=== PATIENT | female | born 1960 | race Hispanic/Latino ===

== ENCOUNTER 2018-12-15 12:12 | Emergency (ER) | payer OTHER ==
[~2018-12-15] VITALS: Ht 165.1 cm; Wt 88.9 kg
[2018-12-15] MEDS ORDERED: NAPR-885 (12:19)
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
[2018-12-15 13:53] VITALS: BP 153/82
[2018-12-15] MEDS ORDERED: METH750T2 PO (14:17)
[2018-12-15] MEDS ORDERED: IBUP-1022 PO (14:17)
== END 2018-12-15 14:25 | disposition home or self-care (01) ==
LOC: M ED 12:12
DX: S13.9XXA Sprain of joints and ligaments of unspecified parts of neck, initial encounter (principal); V43.52XA Car driver injured in collision with other type car in traffic accident, initial encounter; Y92.9 Unspecified place or not applicable; Y93.9 Activity, unspecified; Y99.9 Unspecified external cause status

== ENCOUNTER → 2019-02-21 | Outpatient (REF) | payer OTHER ==
[~2019-02-21] MED LIST: IBUP-1022 PO; METH750T2 PO; NAPR-885
[2019-02-24 00:07] LABS: ANTINUCLEAR ANTIBODIES DIRECT Negative (Negative); CYCLIC CITRULLINATED PEPTIDE 8 units (0-19)
== END ==
LOC: M LAB REF 12:33
PROVIDERS: ATTEND Internal Medicine
DX: M25.50 Pain in unspecified joint (principal)

== ENCOUNTER → 2019-09-20 | Outpatient (REF) | payer OTHER | LOC: M LAB REF 16:03 | PROVIDERS: ATTEND Internal Medicine | DX: G60.9 Hereditary and idiopathic neuropathy, unspecified (principal) ==

== ENCOUNTER → 2020-05-07 | Outpatient (CLI) | payer OTHER ==
[~2020-05-07] MED LIST changes: +METH-1165 PO; -METH750T2 PO
--- NOTE | 2020-05-08 02:49 | REP ---
INDICATION: RESPIRATORY TB COMPARISON: 05/29/2007 TECHNIQUE: PA and lateral. FINDINGS: The mediastinum and cardiac silhouette are normal. The lung de la cruz are clear and without acute consolidation, effusion, or pneumothorax. The skeletal structures are intact and normal. IMPRESSION: No acute cardiopulmonary process. <Electronically signed by Jj Garcia > 05/08/20 [id number]
== END ==
LOC: M WUC 11:02
PROVIDERS: ATTEND Physician Assistant
DX: Z11.1 Encounter for screening for respiratory tuberculosis (principal)

== ENCOUNTER → 2021-06-16 | Outpatient (CLI) | payer OTHER | LOC: M RAD 15:51 | PROVIDERS: ATTEND Internal Medicine | DX: R52 Pain, unspecified (principal); M51.36 Other intervertebral disc degeneration, lumbar region; M51.37 Other intervertebral disc degeneration, lumbosacral region; M16.12 Unilateral primary osteoarthritis, left hip ==

== ENCOUNTER 2022-12-23 16:25 | Emergency (ER) | payer OTHER ==
[~2022-12-23] VITALS: Ht 165.1 cm; Wt 93.7 kg
[2022-12-23 16:26] VITALS: TEMP 97.9
[2022-12-23] MEDS ORDERED: LOSA25TA13 (17:29)
[2022-12-23] MEDS ORDERED: MELO15TA28 (17:29)
[2022-12-23 17:32] LABS: BASO % 0.3 % (0.0-1.0); EOS # 0.2 10^3/uL (0.0-0.5); EOS % 2.3 % (0.0-3.0); HEMATOCRIT 36.9 % (36.0-47.0); HEMOGLOBIN 12.4 g/dl (12.0-15.5); LYMPH # 2.7 10^3/uL (1.5-5.0); LYMPH % 29.9 % (24.0-44.0); MEAN CORPUSCULAR HEMOGLOBIN 30.2 pg (27.0-33.0); MEAN CORPUSCULAR HGB CONC 33.6 g/dl (32.0-36.5); MONO # 0.8 10^3/uL (0.0-0.8); MONO % 8.5 % (2.0-8.0); NEUTROPHILS # 5.2 10^3/uL (1.5-8.5); NEUTROPHILS % 58.8 % (36.0-66.0); PLATELET COUNT, AUTOMATED 308 10^3/uL (150-450); WHITE BLOOD COUNT 8.9 10^3/uL (4.0-10.0)
[2022-12-23 17:47] LABS: LIPASE 35 U/L (12-53)
[2022-12-23 17:49] LABS: ALBUMIN 3.8 G/DL (3.2-5.2); ALKALINE PHOSPHATASE 80 U/L (46-116); ALT/SGPT 30 U/L (7.0-40); AST/SGOT 22 U/L (<34); BILIRUBIN,DIRECT < 0.1 MG/DL (<0.4); BILIRUBIN,TOTAL 0.3 MG/DL (0.3-1.2); BLOOD UREA NITROGEN 15 MG/DL (9-23); CALCIUM LEVEL 8.9 MG/DL (8.3-10.6); CARBON DIOXIDE LEVEL 26 MMOL/L (20-31); CHLORIDE LEVEL 106 MMOL/L (98-107); CK-MB VALUE MASS 1.4 NG/ML (<3.6); CPK CREATINE PHOSPHOKINASE 164 U/L (34-145); GLOMERULAR FILTRATION RATE > 60.0 (>45); GLUCOSE, FASTING 88 MG/DL (74-106); MB/CK RELATIVE INDEX 0.85 (< OR =4); POTASSIUM SERUM 3.7 MMOL/L (3.5-5.1); SODIUM LEVEL 138 MMOL/L (136-145)
[2022-12-23] MEDS ORDERED: MAALOX 30 ML SUSP *UDC PO ONE (20:15)
[2022-12-23] MEDS ORDERED: SUCRALFATE 1 GM TAB PO ONE (20:15)
[2022-12-23 21:25] LABS: INR 1.11
[2022-12-23 21:30] VITALS: BP 111/66
[2022-12-23 21:38] LABS: CK-MB VALUE MASS 1.5 NG/ML (<3.6)
[2022-12-23 21:39] LABS: CPK CREATINE PHOSPHOKINASE 158 U/L (34-145); MB/CK RELATIVE INDEX 0.94 (< OR =4)
[2022-12-23 21:40] VITALS: O2SAT 94
[2022-12-23] MEDS ORDERED: SUCR1SS PO (21:48)
[2022-12-23] MEDS ORDERED: PROT1TAB2 PO (21:48)
== END 2022-12-23 22:00 | disposition home or self-care (01) ==
LOC: M ED 16:25
DX: R07.9 Chest pain, unspecified (principal); I10 Essential (primary) hypertension; K57.92 Diverticulitis of intestine, part unspecified, without perforation or abscess without bleeding; Z91.048 Other nonmedicinal substance allergy status; Z79.811 Long term (current) use of aromatase inhibitors; Z79.899 Other long term (current) drug therapy

== ENCOUNTER → 2023-01-01 | Outpatient (CLI) | payer OTHER ==
[~2023-01-01] MED LIST changes: +LOSA25TA13; +MELO15TA28; +PROT1TAB2 PO; +SUCR1SS PO
== END ==
LOC: M EKG 15:44
PROVIDERS: ATTEND Internal Medicine
DX: R00.2 Palpitations (principal)

== ENCOUNTER → 2023-08-23 | Outpatient (REF) | payer OTHER | LOC: M LAB REF 13:24 | PROVIDERS: ATTEND Internal Medicine | DX: M25.549 Pain in joints of unspecified hand (principal) ==